=== PATIENT | male | born 1980 | race Two or more races ===

== ENCOUNTER 2016-11-08 18:07 | Emergency (ER) | payer OTHER | END 2016-11-08 18:30 | disposition home or self-care (01) | LOC: CFTX 18:07 | DX: T22.212A Burn of second degree of left forearm, initial encounter (principal); T31.0 Burns involving less than 10% of body surface; X12.XXXA Contact with other hot fluids, initial encounter; Y92.69 Other specified industrial and construction area as the place of occurrence of the external cause | CPT/HCPCS: 99283 ==